=== PATIENT | female | born 1950 | race Caucasian/White ===

== ENCOUNTER 2023-03-03 08:30 | Outpatient (RCR) | payer OTHER, MEDICAID, SELFPAY ==
--- NOTE | 2023-01-26 11:46 | URNOTE ---
Bimal Michelle at [facility] prior auth is not required for Rocio ([id number]). Call ref #[id number]
[2023-01-30 13:30] VITALS: BP 110/66; PULSE 96; RESP 14; TEMP 36.6; O2SAT 96
--- NOTE | 2023-01-30 13:40 | ONC.NURNOTE ---
was discharged 2 weeks ago, from a 17 day stay at [facility] with Renal failure. had labs today in [place]. states inr 4.1. verifying med and dose today with Malinda Smith APRN before giving it. pt states due to CRD and CHF. Lasix was changed to 40mg every am and additional [facility].
[2023-01-30] MEDS: DARBEPOETIN ALFA (NON DIALYSIS) 100 MCG SUBCUT (14:14)
[2023-01-30] MEDS: [UNRECOGNIZED DRUG - REMARK] SUBCUT (14:14)
[2023-02-03 13:08] VITALS: BP 118/72; PULSE 86; RESP 18; TEMP 36.3; O2SAT 97
[2023-02-03] MEDS: IRON SUCROSE COMPLEX 200 MG in 0.9 % SODIUM CHLORIDE 100 ml 100 ML 440 MG IVPB (13:23)
[2023-02-05] MEDS: IRON SUCROSE COMPLEX 200 MG in 0.9 % SODIUM CHLORIDE 100 ml 100 ML 440 MG IVPB (11:30)
[2023-02-05 12:58] VITALS: BP 118/75; PULSE 91; RESP 16; TEMP 36.8; O2SAT 96
[2023-02-09 11:22] VITALS: BP 108/61; PULSE 86; RESP 16; TEMP 36.1; O2SAT 96
--- NOTE | 2023-02-09 11:57 | URNOTE ---
Request received for authorization for Arturo ([id number]). Prior authorization is not required per [facility].
[2023-02-09] MEDS: IRON SUCROSE COMPLEX 200 MG in 0.9 % SODIUM CHLORIDE 100 ml 100 ML 440 MG IVPB (12:08)
[2023-02-09] MEDS: 0.9 % SODIUM CHLORIDE 250 ml IV (12:10)
[2023-02-09 12:34] VITALS: BP 113/69; PULSE 81; RESP 16; TEMP 36.3; O2SAT 97
[2023-02-09 13:09] VITALS: BP 118/71; PULSE 95; RESP 16; TEMP 36.5; O2SAT 98
[2023-02-11 08:22] VITALS: BP 115/69; PULSE 99; RESP 16; TEMP 36.4; O2SAT 99
[2023-02-11] MEDS: IRON SUCROSE COMPLEX 200 MG in 0.9 % SODIUM CHLORIDE 100 ml 100 ML 440 MG IVPB (08:59)
[2023-02-11] MEDS: 0.9 % SODIUM CHLORIDE 250 ml IV (08:59)
[2023-02-11 10:00] VITALS: BP 127/79; PULSE 89; RESP 16; TEMP 36.7; O2SAT 98
[2023-02-13] MEDS: 0.9 % SODIUM CHLORIDE 250 ml IV (09:11)
[2023-02-13] MEDS: IRON SUCROSE COMPLEX 200 MG in 0.9 % SODIUM CHLORIDE 100 ml 100 ML 440 MG IVPB (09:11)
[2023-02-13 10:05] VITALS: BP 127/79; PULSE 97; RESP 18; TEMP 36.2; O2SAT 100
[2023-03-03 08:33] LABS: Hemoglobin* 9.6 gm/dL (12.0-16.0)
[2023-03-03 08:59] VITALS: BP 99/59; PULSE 101; RESP 20; TEMP 36.4; O2SAT 97
[2023-03-03] MEDS: DARBEPOETIN ALFA (NON DIALYSIS) 100 MCG SUBCUT (09:33)
--- NOTE | 2023-04-03 09:34 | ONC.NURNOTE ---
It was noted that patient missed appointment on Thursday, called and LMOM for patient to call back and reschedule.
== END 2023-07-29 23:59 | disposition home or self-care (01) ==
LOC: CCIC 08:30
PROVIDERS: PCP Family Medicine; Referring Provider Family Medicine; Visit Provider Internal Medicine Nephrology
DX: N18.4 Chronic kidney disease, stage 4 (severe) (principal); D63.1 Anemia in chronic kidney disease
CPT/HCPCS: 36415; 85018; 96372; 96374; J0881; J0882; J1756; J7050